=== PATIENT | female | born 1940 | race Caucasian/White ===

== ENCOUNTER 2017-09-16 20:52 | Emergency (ER) | payer MEDICARE, OTHER ==
[~2017-09-16] VITALS: Ht 170.2 cm; Wt 63.5 kg
[2017-09-17 00:27] VITALS: BP 143/71
[2017-09-17 00:43] LABS: Urine Bacteria MANY /hpf (None Seen); Urine Blood TRACE /uL (Negative); Urine Mucus FEW (None Seen); Urine Specific Gravity 1.011 (1.001-1.035); Urine WBC 47 /hpf (0 - 5)
[2017-09-17] MEDS ORDERED: MORPHINE SULF INJ 2 MG/ML SYRINGE 1ML IV ONE ×2 (01:45)
[2017-09-17] MEDS ORDERED: ONDANSETRON HCL 4 MG/2 ML VIAL IV ONE ×2 (01:45)
== END 2017-09-17 01:01 | disposition home or self-care (01) ==
LOC: EDBD 20:52 → ER 20:59
DX: S76.012A Strain of muscle, fascia and tendon of left hip, initial encounter (principal); I10 Essential (primary) hypertension; E78.5 Hyperlipidemia, unspecified; W18.39XA Other fall on same level, initial encounter; Y93.89 Activity, other specified; Y99.8 Other external cause status; Y92.098 Other place in other non-institutional residence as the place of occurrence of the external cause
CPT/HCPCS: 73502; 81001; 96374; 96375; 96376; 99285; J2270; J2405; 93005

== ENCOUNTER 2017-09-19 17:13 | Emergency (ER) | payer MEDICARE, OTHER ==
[~2017-09-19] VITALS: Ht 162.6 cm; Wt 54.4 kg
[2017-09-19 19:29] LABS: Urine Amorphous Crystal FEW /hpf (None Seen); Urine Bacteria MANY /hpf (None Seen); Urine Blood TRACE /uL (Negative); Urine Mucus FEW (None Seen); Urine Specific Gravity 1.013 (1.001-1.035); Urine WBC 45 /hpf (0 - 5); Urine WBC Clumps PRESENT /hpf (None Seen)
[2017-09-19] MEDS ORDERED: KETOROLAC TROMETH 60MG/2ML VIAL IM ONE (21:15)
[2017-09-19] MEDS ORDERED: fentaNYL CITRATE 100 MCG/2 ML VL IV ONE (23:00)
[2017-09-19] MEDS ORDERED: CIPROFLOXACIN 400MG/200ML 200 ML IV ONE (23:00)
[2017-09-20 02:57] VITALS: BP 122/71
== END 2017-09-20 03:08 | disposition short-term general hospital (02) ==
LOC: EDBD 17:13 → ER 17:15
DX: S72.092A Other fracture of head and neck of left femur, initial encounter for closed fracture (principal); N39.0 Urinary tract infection, site not specified; E78.5 Hyperlipidemia, unspecified; I10 Essential (primary) hypertension; Z88.0 Allergy status to penicillin; W18.39XA Other fall on same level, initial encounter; Y93.89 Activity, other specified; Y99.8 Other external cause status; Y92.89 Other specified places as the place of occurrence of the external cause
CPT/HCPCS: 73502; 81001; 96365; 96372; 99285; J0744; J1885